=== PATIENT | male | born 1995 | race Two or more races ===

== ENCOUNTER 2020-10-05 06:51 | Emergency (ER) | payer OTHER ==
[~2020-10-05] VITALS: Ht 167.6 cm; Wt 59.1 kg
[2020-10-05 06:53] VITALS: BP 114/65
[2020-10-05] MEDS ORDERED: BUPR1FIL3 SL (07:02)
[2020-10-05] MEDS ORDERED: BACITRACIN 0.9 GM PACKET OINTMENT TP ONE (07:30)
[2020-10-05] MEDS ORDERED: ACETAMINOPHEN 500 MG TABLET PO ONE (07:30)
== END 2020-10-05 07:45 | disposition home or self-care (01) ==
LOC: EMS 06:54
DX: S61.305A Unspecified open wound of left ring finger with damage to nail, initial encounter (principal); F17.210 Nicotine dependence, cigarettes, uncomplicated; Z88.5 Allergy status to narcotic agent; W22.01XA Walked into wall, initial encounter; Y93.89 Activity, other specified; Y92.89 Other specified places as the place of occurrence of the external cause; Y99.8 Other external cause status
CPT/HCPCS: 99283

== ENCOUNTER 2020-10-12 23:20 | Emergency (ER) | payer OTHER ==
[~2020-10-12] VITALS: Ht 165.1 cm; Wt 61.8 kg
[~2020-10-12 23:20] MED LIST: BUPR1FIL3 SL
[2020-10-12 23:22] VITALS: BP 122/74
== END 2020-10-13 01:06 | disposition left against medical advice (07) ==
LOC: EMS 23:20
DX: R51.9 Headache, unspecified (principal); Z53.21 Procedure and treatment not carried out due to patient leaving prior to being seen by health care provider